=== PATIENT | male | born 1955 ===

== ENCOUNTER 2020-05-24 13:36 | Inpatient (IN) ==
[2020-05-24] MEDS ORDERED: ZALEPLON 5 MG CAPSULE PO PRN (13:42)
[2020-05-24] MEDS ORDERED: POTASSIUM CHLORIDE 20 MEQ TABLET PO PRN (13:42)
[2020-05-24] MEDS ORDERED: LACTULOSE 20 GM/30 ML UDCUP PO PRN (13:42)
[2020-05-24] MEDS ORDERED: ALUMINUM/MAGNES/SIMETH MAX STR 30 ML UDCUP PO PRN (13:42)
[2020-05-24] MEDS ORDERED: diphenhydrAMINE CAP 25 MG CAPSULE PO PRN (13:42)
[2020-05-24] MEDS ORDERED: SIMETHICONE CHEW 125 MG TABLET PO PRN (13:42)
[2020-05-24] MEDS ORDERED: CALCIUM CARBONATE CHEW 500 MG TABLET PO PRN (13:42)
[2020-05-24] MEDS ORDERED: BISACODYL 5 MG TABLET PO PRN (13:42)
[2020-05-24] MEDS ORDERED: ONDANSETRON 4 MG/2 ML VIAL IV PRN (13:42)
[2020-05-24] MEDS ORDERED: guaiFENesin/DM ER 600-30 MG TABLET PO PRN (13:42)
[2020-05-24] MEDS ORDERED: MAGNESIUM SULF RIDER 2 GM in PREMIX 1 EACH IV PRN (13:42)
[2020-05-24] MEDS ORDERED: MORPHINE 4 MG/1 ML VIAL IV PRN (13:42)
[2020-05-24] MEDS ORDERED: MAGNESIUM SULF RIDER 4 GM in PREMIX 1 EACH IV PRN (13:42)
[2020-05-24] MEDS ORDERED: FLUTICASONE 50 MCG NASAL SPRAY 16 GM BOTTLE BOTH NARES PRN (13:47)
[2020-05-24] MEDS ORDERED: GLUCAGON 1 MG VIAL IM PRN (13:49)
[2020-05-24] MEDS ORDERED: DEXTROSE 50% 25 GM/50 ML VIAL IV PRN (13:49)
[2020-05-24] MEDS: INSULIN LISPRO 100 UNIT/ML SUBCUT SCH ×2 (18:15→21:43)
[2020-05-24 18:25] LABS: Basophils % 0.2 % (0.0-0.8); Eosinophils # 0.1 10*3/uL (0.0-0.87); Eosinophils % 1.4 % (0.00-10.9); Hematocrit 35.6 VOL% (42.0-52.0); Hemoglobin 11.5 GM/DL (14.0-18.0); Immature Granulocytes % 0.3 %; Immature Granulocytes Absolute 0.02 #; Lymphocytes # 2.2 10*3/uL (1.4-4.0); Lymphocytes % 34.6 % (21.2-54.2); Mean Corpuscular HGB Conc 32.3 GM/DL (32-36); Mean Corpuscular Volume 95.7 FL (87-102); Mean Platelet Volume 10.4 FL (9.6-12.0); Neutrophils % 54.5 % (38.7-73.9); Platelet Count 205 T/CUMM (130-400); Red Blood Count 3.72 MC/CUMM (3.8-5.5); Red Cell Distribution Width 17.4 % (9.3-17.3); White Blood Count 6.5 T/CUMM (4-12)
[2020-05-24] MEDS: FUROSEMIDE 40 MG/4 ML VIAL IV SCH (18:30)
[2020-05-24 18:53] LABS: Albumin 3.2 G/DL (3.4-5.0); Bilirubin,Total 2.3 MG/DL (0.2-1.0); Calcium 9.2 MG/DL (8.5-10.1); Osmolality,Calculated 289.8 MOS/KG (273-304); Thyroid Stimulating Hormone 1.61 uIU/ml (0.358-3.74); Total Protein 5.9 G/DL (6.4-8.3)
[2020-05-24 20:00] LABS: Band Neutrophils 3 % (0-10); Lymphocytes 26 % (20-55); Nucleated Red Blood Cells 1 (0-5); Segmented Neutrophils 64 % (50-85); Total Cells Counted 100
[2020-05-24 20:01] LABS: Anisocytosis Slight; Ovalocytes Few; Platelet Estimate Adequate; Polychromasia Few
[2020-05-24] MEDS ORDERED: APIXABAN 5 MG TABLET PO SCH (21:00)
[2020-05-24] MEDS ORDERED: LISINOPRIL/HCTZ 20-12.5 MG TABLET PO SCH (21:00)
[2020-05-24 21:23] LABS: Troponin I 0.044 NG/ML (0.00-0.045)
[2020-05-24] MEDS: hydrALAZINE 25 MG TABLET PO SCH (21:42)
[2020-05-24 23:38] LABS: Troponin I 0.045 NG/ML (0.00-0.045)
[2020-05-25 05:55] LABS: Basophils % 0.3 % (0.0-0.8); Eosinophils # 0.1 10*3/uL (0.0-0.87); Eosinophils % 1.9 % (0.00-10.9); Hematocrit 33.5 VOL% (42.0-52.0); Hemoglobin 10.8 GM/DL (14.0-18.0); Immature Granulocytes % 0.3 %; Immature Granulocytes Absolute 0.02 #; Lymphocytes # 2.2 10*3/uL (1.4-4.0); Lymphocytes % 34.5 % (21.2-54.2); Mean Corpuscular HGB Conc 32.2 GM/DL (32-36); Mean Corpuscular Volume 95.7 FL (87-102); Mean Platelet Volume 11.2 FL (9.6-12.0); Monocytes % 10.3 % (1.7-12.7); Neutrophils % 52.7 % (38.7-73.9); Platelet Count 188 T/CUMM (130-400); Red Cell Distribution Width 17.5 % (9.3-17.3); White Blood Count 6.2 T/CUMM (4-12)
[2020-05-25 06:18] LABS: Calcium 8.8 MG/DL (8.5-10.1); Osmolality,Calculated 291.7 MOS/KG (273-304); Risk Ratio 2.64; VLDL CHOLESTEROL 8.8 MG/DL
[2020-05-25 06:28] LABS: Eosinophils 2 % (0-10); Lymphocytes 28 % (20-55); Platelet Estimate Adequate; Segmented Neutrophils 56 % (50-85); Total Cells Counted 100
[2020-05-25 06:29] LABS: Atypical Lymphocytes Few; Burr Cells Slight; Hypochromasia 1+; Ovalocytes Slight
[2020-05-25] MEDS: INSULIN LISPRO 100 UNIT/ML SUBCUT SCH ×4 (08:27→23:05)
[2020-05-25] MEDS: hydrALAZINE 25 MG TABLET PO SCH ×2 (08:56→23:03)
[2020-05-25] MEDS: GLIMEPIRIDE 4 MG TABLET PO SCH (08:56)
[2020-05-25] MEDS: SPIRONOLACTONE 25 MG TABLET PO SCH (08:56)
[2020-05-25] MEDS: ATORVASTATIN 40 MG TABLET PO SCH (08:57)
[2020-05-25] MEDS: APIXABAN 2.5 MG TABLET PO SCH ×2 (08:57→23:03)
[2020-05-25] MEDS: POTASSIUM CHLORIDE 20 MEQ TABLET PO SCH ×2 (08:57→23:02)
[2020-05-25] MEDS: FUROSEMIDE 40 MG/4 ML VIAL IV SCH ×2 (08:57→15:32)
[2020-05-25] MEDS: NEBIVOLOL 10 MG TABLET PO SCH (08:57)
[2020-05-25] MEDS: PANTOPRAZOLE 40 MG TABLET PO SCH (08:57)
[2020-05-25] MEDS: MAGNESIUM OXIDE 400 MG TABLET PO SCH ×2 (08:57→23:03)
[2020-05-25] MEDS: MULTIVITAMIN (CENTRUM) TABLET PO SCH (08:57)
[2020-05-25] MEDS ORDERED: metOLazone 5 MG TABLET PO SCH (09:00)
[2020-05-25] MEDS ORDERED: POTASSIUM CHLORIDE 20 MEQ TABLET PO ONE (11:00)
[2020-05-26 05:42] LABS: Basophils % 0.4 % (0.0-0.8); Eosinophils # 0.2 10*3/uL (0.0-0.87); Eosinophils % 2.2 % (0.00-10.9); Hematocrit 34.5 VOL% (42.0-52.0); Hemoglobin 11.4 GM/DL (14.0-18.0); Immature Granulocytes % 0.3 %; Immature Granulocytes Absolute 0.02 #; Lymphocytes # 2.8 10*3/uL (1.4-4.0); Mean Corpuscular Volume 94.5 FL (87-102); Mean Platelet Volume 10.9 FL (9.6-12.0); Monocytes % 16.7 % (1.7-12.7); Neutrophils % 41.4 % (38.7-73.9); Platelet Count 205 T/CUMM (130-400); Red Blood Count 3.65 MC/CUMM (3.8-5.5); Red Cell Distribution Width 17.2 % (9.3-17.3); White Blood Count 7.3 T/CUMM (4-12)
[2020-05-26 06:03] LABS: Calcium 9.2 MG/DL (8.5-10.1); Osmolality,Calculated 286.1 MOS/KG (273-304)
[2020-05-26 06:22] LABS: Acanthocytes 1+; Anisocytosis 1+; Band Neutrophils 2 % (0-10); Lymphocytes 42 % (20-55); Ovalocytes 1+; Segmented Neutrophils 39 % (50-85); Total Cells Counted 100
[2020-05-26 06:23] LABS: Platelet Estimate Normal
[2020-05-26] MEDS ORDERED: MAGNESIUM SULF RIDER 2 GM in PREMIX 1 EACH IV ONE (08:02)
[2020-05-26] MEDS ORDERED: POTASSIUM CHLORIDE 20 MEQ TABLET PO ONE (08:02)
[2020-05-26] MEDS: INSULIN LISPRO 100 UNIT/ML SUBCUT SCH ×4 (09:08→21:30)
[2020-05-26] MEDS: MAGNESIUM OXIDE 400 MG TABLET PO SCH ×2 (09:09→21:32)
[2020-05-26] MEDS: NEBIVOLOL 10 MG TABLET PO SCH (09:09)
[2020-05-26] MEDS: GLIMEPIRIDE 4 MG TABLET PO SCH (09:10)
[2020-05-26] MEDS: APIXABAN 2.5 MG TABLET PO SCH ×2 (09:10→21:32)
[2020-05-26] MEDS: SPIRONOLACTONE 25 MG TABLET PO SCH (09:10)
[2020-05-26] MEDS: ATORVASTATIN 40 MG TABLET PO SCH (09:10)
[2020-05-26] MEDS: MULTIVITAMIN (CENTRUM) TABLET PO SCH (09:10)
[2020-05-26] MEDS: hydrALAZINE 25 MG TABLET PO SCH ×2 (09:10→21:29)
[2020-05-26] MEDS: POTASSIUM CHLORIDE 20 MEQ TABLET PO SCH ×3 (09:10→21:32)
[2020-05-26] MEDS: FUROSEMIDE 40 MG/4 ML VIAL IV SCH ×2 (09:11→17:11)
[2020-05-26] MEDS: PANTOPRAZOLE 40 MG TABLET PO SCH (09:14)
[2020-05-26] MEDS: ACETAMINOPHEN 325 MG TABLET PO PRN (21:44)
[2020-05-27 05:44] LABS: Basophils % 0.3 % (0.0-0.8); Eosinophils # 0.2 10*3/uL (0.0-0.87); Eosinophils % 1.6 % (0.00-10.9); Hematocrit 34.4 VOL% (42.0-52.0); Hemoglobin 11.4 GM/DL (14.0-18.0); Immature Granulocytes % 0.2 %; Immature Granulocytes Absolute 0.02 #; Lymphocytes # 3.9 10*3/uL (1.4-4.0); Lymphocytes % 40.5 % (21.2-54.2); Mean Corpuscular HGB Conc 33.1 GM/DL (32-36); Mean Platelet Volume 11.4 FL (9.6-12.0); Monocytes % 23.1 % (1.7-12.7); Neutrophils % 34.3 % (38.7-73.9); Platelet Count 220 T/CUMM (130-400); Red Blood Count 3.66 MC/CUMM (3.8-5.5); Red Cell Distribution Width 17.3 % (9.3-17.3); White Blood Count 9.6 T/CUMM (4-12)
[2020-05-27 05:55] LABS: Calcium 9.1 MG/DL (8.5-10.1); Osmolality,Calculated 289.8 MOS/KG (273-304)
[2020-05-27 06:43] LABS: Eosinophils 2 % (0-10); Lymphocytes 40 % (20-55); Segmented Neutrophils 43 % (50-85); Total Cells Counted 100
[2020-05-27 06:44] LABS: Atypical Lymphocytes Few; Burr Cells Slight; Hypochromasia 1+; Ovalocytes Slight; Platelet Estimate Adequate
[2020-05-27] MEDS: POTASSIUM CHLORIDE 20 MEQ TABLET PO SCH ×3 (09:29→20:56)
[2020-05-27] MEDS: MULTIVITAMIN (CENTRUM) TABLET PO SCH (09:30)
[2020-05-27] MEDS: MAGNESIUM OXIDE 400 MG TABLET PO SCH ×2 (09:30→20:56)
[2020-05-27] MEDS: SPIRONOLACTONE 25 MG TABLET PO SCH (09:30)
[2020-05-27] MEDS: ATORVASTATIN 40 MG TABLET PO SCH (09:30)
[2020-05-27] MEDS: APIXABAN 2.5 MG TABLET PO SCH ×2 (09:30→20:56)
[2020-05-27] MEDS: PANTOPRAZOLE 40 MG TABLET PO SCH (09:30)
[2020-05-27] MEDS: FUROSEMIDE 40 MG/4 ML VIAL IV SCH ×2 (09:30→16:12)
[2020-05-27] MEDS: NEBIVOLOL 10 MG TABLET PO SCH (09:31)
[2020-05-27] MEDS: GLIMEPIRIDE 4 MG TABLET PO SCH (09:35)
[2020-05-27] MEDS: INSULIN LISPRO 100 UNIT/ML SUBCUT SCH ×4 (09:35→21:02)
[2020-05-27] MEDS: hydrALAZINE 25 MG TABLET PO SCH ×2 (10:34→21:03)
[2020-05-27] MEDS: DOBUTamine 500 MG/250 ML PREMIX IV SCH (11:29)
[2020-05-27] MEDS: metOLazone 5 MG TABLET PO SCH (15:04)
[2020-05-28] MEDS: DOBUTamine 500 MG/250 ML PREMIX IV SCH ×2 (00:46→15:20)
[2020-05-28 05:29] LABS: Basophils % 0.3 % (0.0-0.8); Eosinophils # 0.1 10*3/uL (0.0-0.87); Eosinophils % 1.1 % (0.00-10.9); Hematocrit 32.8 VOL% (42.0-52.0); Hemoglobin 10.9 GM/DL (14.0-18.0); Immature Granulocytes % 0.2 %; Immature Granulocytes Absolute 0.02 #; Lymphocytes # 3.8 10*3/uL (1.4-4.0); Lymphocytes % 37.4 % (21.2-54.2); Mean Corpuscular HGB Conc 33.2 GM/DL (32-36); Mean Corpuscular Volume 93.4 FL (87-102); Mean Platelet Volume 11.1 FL (9.6-12.0); Monocytes % 30.7 % (1.7-12.7); Neutrophils % 30.3 % (38.7-73.9); Platelet Count 199 T/CUMM (130-400); Red Blood Count 3.51 MC/CUMM (3.8-5.5); Red Cell Distribution Width 17.2 % (9.3-17.3); White Blood Count 10.3 T/CUMM (4-12)
[2020-05-28 05:56] LABS: Calcium 9.1 MG/DL (8.5-10.1); Osmolality,Calculated 289.3 MOS/KG (273-304)
[2020-05-28 05:58] LABS: Calcium 9.3 MG/DL (8.5-10.1); Osmolality,Calculated 285.5 MOS/KG (273-304)
[2020-05-28 06:02] LABS: Anisocytosis 1+; Burr Cells Few; Platelet Estimate Normal; Poikilocytosis Slight
[2020-05-28 06:03] LABS: Macrocytosis 1+
[2020-05-28] MEDS: INSULIN LISPRO 100 UNIT/ML SUBCUT SCH ×4 (08:55→21:18)
[2020-05-28] MEDS: metOLazone 5 MG TABLET PO SCH (08:56)
[2020-05-28] MEDS: MAGNESIUM OXIDE 400 MG TABLET PO SCH ×2 (08:57→21:21)
[2020-05-28] MEDS: APIXABAN 2.5 MG TABLET PO SCH ×2 (08:57→21:20)
[2020-05-28] MEDS: POTASSIUM CHLORIDE 20 MEQ TABLET PO SCH ×3 (08:57→21:20)
[2020-05-28] MEDS: PANTOPRAZOLE 40 MG TABLET PO SCH (08:57)
[2020-05-28] MEDS: FUROSEMIDE 40 MG/4 ML VIAL IV SCH ×2 (08:57→15:21)
[2020-05-28] MEDS: MULTIVITAMIN (CENTRUM) TABLET PO SCH (08:57)
[2020-05-28] MEDS: ATORVASTATIN 40 MG TABLET PO SCH (08:57)
[2020-05-28] MEDS: NEBIVOLOL 10 MG TABLET PO SCH (08:58)
[2020-05-28] MEDS: SPIRONOLACTONE 25 MG TABLET PO SCH (08:58)
[2020-05-28] MEDS: hydrALAZINE 25 MG TABLET PO SCH ×2 (08:58→21:20)
[2020-05-28] MEDS ORDERED: MAGNESIUM SULF RIDER 2 GM in PREMIX 1 EACH IV ONE (12:19)
[2020-05-28] MEDS ORDERED: THEOPHYLLINE ER 300 MG TABLET PO SCH (13:30)
[2020-05-28] MEDS ORDERED: predniSONE 5 MG TABLET PO SCH (13:30)
[2020-05-28] MEDS ORDERED: POTASSIUM CHLORIDE 10 MEQ TABLET PO SCH (13:30)
[2020-05-28] MEDS ORDERED: MAGNESIUM CHLORIDE 64 MG TABLET PO SCH (14:00)
[2020-05-28] MEDS ORDERED: WARFARIN 3 MG TABLET PO SCH (18:00)
[2020-05-28] MEDS: ASCORBIC ACID 500 MG TABLET PO SCH (21:20)
[2020-05-29 05:21] LABS: Basophils % 0.3 % (0.0-0.8); Eosinophils # 0.1 10*3/uL (0.0-0.87); Hematocrit 33.3 VOL% (42.0-52.0); Hemoglobin 11.1 GM/DL (14.0-18.0); Immature Granulocytes % 0.2 %; Immature Granulocytes Absolute 0.02 #; Lymphocytes # 4.1 10*3/uL (1.4-4.0); Lymphocytes % 34.4 % (21.2-54.2); Mean Corpuscular HGB Conc 33.3 GM/DL (32-36); Mean Corpuscular Volume 91.5 FL (87-102); Mean Platelet Volume 11.2 FL (9.6-12.0); Monocytes % 38.2 % (1.7-12.7); Neutrophils % 25.9 % (38.7-73.9); Platelet Count 200 T/CUMM (130-400); Red Blood Count 3.64 MC/CUMM (3.8-5.5); Red Cell Distribution Width 16.8 % (9.3-17.3)
[2020-05-29] MEDS: ACETAMINOPHEN 325 MG TABLET PO PRN ×2 (05:23→22:05)
[2020-05-29] MEDS: DOBUTamine 500 MG/250 ML PREMIX IV SCH ×2 (05:25→22:52)
[2020-05-29 05:50] LABS: Atypical Lymphocytes Few; Eosinophils 1 % (0-10); Hypochromasia 1+; Lymphocytes 50 % (20-55); Ovalocytes Slight; Platelet Estimate Adequate; Segmented Neutrophils 39 % (50-85); Smudge Cells Moderate; Total Cells Counted 100
[2020-05-29 06:01] LABS: Calcium 9.7 MG/DL (8.5-10.1); Osmolality,Calculated 281.8 MOS/KG (273-304)
[2020-05-29] MEDS: FUROSEMIDE 40 MG/4 ML VIAL IV SCH ×2 (08:54→16:01)
[2020-05-29] MEDS: SPIRONOLACTONE 25 MG TABLET PO SCH (09:02)
[2020-05-29] MEDS: NEBIVOLOL 10 MG TABLET PO SCH (09:03)
[2020-05-29] MEDS: hydrALAZINE 25 MG TABLET PO SCH ×2 (09:03→22:52)
[2020-05-29] MEDS: ISOSORBIDE MONONITRATE 30 MG TABLET PO SCH (09:03)
[2020-05-29] MEDS: metOLazone 5 MG TABLET PO SCH (09:05)
[2020-05-29] MEDS: INSULIN LISPRO 100 UNIT/ML SUBCUT SCH ×4 (09:05→22:53)
[2020-05-29] MEDS: MULTIVITAMIN (CENTRUM) TABLET PO SCH (09:06)
[2020-05-29] MEDS: PANTOPRAZOLE 40 MG TABLET PO SCH (09:06)
[2020-05-29] MEDS: MAGNESIUM OXIDE 400 MG TABLET PO SCH ×2 (09:06→22:52)
[2020-05-29] MEDS: ASCORBIC ACID 500 MG TABLET PO SCH ×2 (09:06→22:52)
[2020-05-29] MEDS: APIXABAN 2.5 MG TABLET PO SCH ×2 (09:06→22:53)
[2020-05-29] MEDS: ATORVASTATIN 40 MG TABLET PO SCH (09:06)
[2020-05-29] MEDS: POTASSIUM CHLORIDE 20 MEQ TABLET PO SCH ×3 (09:06→22:53)
[2020-05-29] MEDS ORDERED: WARFARIN 3 MG TABLET PO SCH (18:00)
[2020-05-30 05:46] LABS: Basophils % 0.3 % (0.0-0.8); Eosinophils # 0.2 10*3/uL (0.0-0.87); Eosinophils % 1.3 % (0.00-10.9); Hematocrit 33.8 VOL% (42.0-52.0); Hemoglobin 11.3 GM/DL (14.0-18.0); Immature Granulocytes % 0.2 %; Immature Granulocytes Absolute 0.02 #; Lymphocytes # 4.4 10*3/uL (1.4-4.0); Lymphocytes % 36.5 % (21.2-54.2); Mean Corpuscular HGB Conc 33.4 GM/DL (32-36); Mean Corpuscular Volume 92.6 FL (87-102); Mean Platelet Volume 11.2 FL (9.6-12.0); Monocytes % 36.5 % (1.7-12.7); Neutrophils % 25.2 % (38.7-73.9); Platelet Count 206 T/CUMM (130-400); Red Blood Count 3.65 MC/CUMM (3.8-5.5); Red Cell Distribution Width 16.7 % (9.3-17.3)
[2020-05-30 06:00] LABS: Calcium 9.4 MG/DL (8.5-10.1); Osmolality,Calculated 285.7 MOS/KG (273-304)
[2020-05-30 06:12] LABS: Eosinophils 2 % (0-10); Lymphocytes 43 % (20-55); Platelet Estimate Normal; Segmented Neutrophils 43 % (50-85); Total Cells Counted 100
[2020-05-30 06:13] LABS: Atypical Lymphocytes Few; Smudge Cells Few
[2020-05-30] MEDS: INSULIN LISPRO 100 UNIT/ML SUBCUT SCH ×4 (07:39→21:25)
[2020-05-30] MEDS: FUROSEMIDE 40 MG/4 ML VIAL IV SCH ×2 (09:57→16:56)
[2020-05-30] MEDS: POTASSIUM CHLORIDE 20 MEQ TABLET PO SCH ×3 (09:58→20:29)
[2020-05-30] MEDS: ISOSORBIDE MONONITRATE 30 MG TABLET PO SCH (09:58)
[2020-05-30] MEDS: MAGNESIUM OXIDE 400 MG TABLET PO SCH ×2 (09:58→20:29)
[2020-05-30] MEDS: MULTIVITAMIN (CENTRUM) TABLET PO SCH (09:58)
[2020-05-30] MEDS: ATORVASTATIN 40 MG TABLET PO SCH (09:58)
[2020-05-30] MEDS: hydrALAZINE 25 MG TABLET PO SCH ×2 (09:59→20:29)
[2020-05-30] MEDS: ASCORBIC ACID 500 MG TABLET PO SCH ×2 (09:59→20:29)
[2020-05-30] MEDS: metOLazone 5 MG TABLET PO SCH (09:59)
[2020-05-30] MEDS: NEBIVOLOL 10 MG TABLET PO SCH (09:59)
[2020-05-30] MEDS: SPIRONOLACTONE 25 MG TABLET PO SCH (09:59)
[2020-05-30] MEDS: PANTOPRAZOLE 40 MG TABLET PO SCH (09:59)
[2020-05-30] MEDS: APIXABAN 2.5 MG TABLET PO SCH ×2 (09:59→20:29)
[2020-05-30] MEDS: DOBUTamine 500 MG/250 ML PREMIX IV SCH (20:28)
[2020-05-31] MEDS: DOBUTamine 500 MG/250 ML PREMIX IV SCH (02:11)
[2020-05-31 05:49] LABS: Basophils % 0.3 % (0.0-0.8); Eosinophils # 0.1 10*3/uL (0.0-0.87); Eosinophils % 0.7 % (0.00-10.9); Hematocrit 33.9 VOL% (42.0-52.0); Hemoglobin 11.4 GM/DL (14.0-18.0); Immature Granulocytes % 0.1 %; Immature Granulocytes Absolute 0.02 #; Lymphocytes # 5.5 10*3/uL (1.4-4.0); Lymphocytes % 36.3 % (21.2-54.2); Mean Corpuscular HGB Conc 33.6 GM/DL (32-36); Mean Corpuscular Volume 89.9 FL (87-102); Mean Platelet Volume 11.4 FL (9.6-12.0); Monocytes % 38.3 % (1.7-12.7); Neutrophils % 24.3 % (38.7-73.9); Platelet Count 201 T/CUMM (130-400); Red Blood Count 3.77 MC/CUMM (3.8-5.5); Red Cell Distribution Width 16.5 % (9.3-17.3); White Blood Count 15.1 T/CUMM (4-12)
[2020-05-31 06:12] LABS: Calcium 9.5 MG/DL (8.5-10.1); Osmolality,Calculated 280.2 MOS/KG (273-304)
[2020-05-31 06:18] LABS: Atypical Lymphocytes Few; Burr Cells Slight; Eosinophils 2 % (0-10); Hypochromasia 1+; Lymphocytes 36 % (20-55); Ovalocytes Slight; Platelet Estimate Adequate; Segmented Neutrophils 45 % (50-85); Smudge Cells Few; Total Cells Counted 100
[2020-05-31] MEDS: ACETAMINOPHEN 325 MG TABLET PO PRN (08:42)
[2020-05-31] MEDS: INSULIN LISPRO 100 UNIT/ML SUBCUT SCH ×4 (08:55→20:39)
[2020-05-31] MEDS: FUROSEMIDE 40 MG/4 ML VIAL IV SCH ×3 (08:56→15:33)
[2020-05-31] MEDS: NEBIVOLOL 10 MG TABLET PO SCH (08:56)
[2020-05-31] MEDS: metOLazone 5 MG TABLET PO SCH (08:56)
[2020-05-31] MEDS: SPIRONOLACTONE 25 MG TABLET PO SCH (08:57)
[2020-05-31] MEDS: MULTIVITAMIN (CENTRUM) TABLET PO SCH (08:58)
[2020-05-31] MEDS: APIXABAN 2.5 MG TABLET PO SCH ×2 (08:58→20:42)
[2020-05-31] MEDS: ISOSORBIDE MONONITRATE 30 MG TABLET PO SCH (08:58)
[2020-05-31] MEDS: hydrALAZINE 25 MG TABLET PO SCH ×2 (08:58→20:42)
[2020-05-31] MEDS: MAGNESIUM OXIDE 400 MG TABLET PO SCH ×2 (08:59→20:39)
[2020-05-31] MEDS: ASCORBIC ACID 500 MG TABLET PO SCH ×2 (08:59→20:40)
[2020-05-31] MEDS: ATORVASTATIN 40 MG TABLET PO SCH (08:59)
[2020-05-31] MEDS: POTASSIUM CHLORIDE 20 MEQ TABLET PO SCH ×3 (08:59→20:40)
[2020-05-31] MEDS: PANTOPRAZOLE 40 MG TABLET PO SCH (08:59)
[2020-06-01 05:15] LABS: Basophils % 0.3 % (0.0-0.8); Eosinophils # 0.1 10*3/uL (0.0-0.87); Eosinophils % 1.2 % (0.00-10.9); Hematocrit 32.7 VOL% (42.0-52.0); Hemoglobin 11.1 GM/DL (14.0-18.0); Immature Granulocytes % 0.2 %; Immature Granulocytes Absolute 0.02 #; Lymphocytes # 4.7 10*3/uL (1.4-4.0); Lymphocytes % 43.6 % (21.2-54.2); Mean Corpuscular HGB Conc 33.9 GM/DL (32-36); Mean Corpuscular Volume 90.8 FL (87-102); Mean Platelet Volume 11.3 FL (9.6-12.0); Monocytes % 30.2 % (1.7-12.7); Neutrophils % 24.5 % (38.7-73.9); Platelet Count 198 T/CUMM (130-400); Red Cell Distribution Width 16.1 % (9.3-17.3); White Blood Count 10.7 T/CUMM (4-12)
[2020-06-01 05:36] LABS: Albumin 2.9 G/DL (3.4-5.0); Bilirubin,Direct 0.96 MG/DL (0.0-0.20); Bilirubin,Indirect 0.9 MG/DL (0.0-1.0); Bilirubin,Total 1.9 MG/DL (0.2-1.0); Calcium 8.7 MG/DL (8.5-10.1); Osmolality,Calculated 285.1 MOS/KG (273-304); Total Protein 5.7 G/DL (6.4-8.3)
[2020-06-01 06:07] LABS: Eosinophils 1 % (0-10); Total Cells Counted 100
[2020-06-01 06:30] LABS: Lymphocytes 43 % (20-55); Segmented Neutrophils 28 % (50-85)
[2020-06-01 06:34] LABS: Hypochromasia Slight; Platelet Estimate Normal
[2020-06-01 07:04] LABS: Atypical Lymphocytes Few
[2020-06-01] MEDS: INSULIN LISPRO 100 UNIT/ML SUBCUT SCH ×4 (08:59→21:07)
[2020-06-01] MEDS: metOLazone 5 MG TABLET PO SCH (09:01)
[2020-06-01] MEDS: POTASSIUM CHLORIDE 20 MEQ TABLET PO SCH ×3 (09:01→21:07)
[2020-06-01] MEDS: NEBIVOLOL 10 MG TABLET PO SCH (09:02)
[2020-06-01] MEDS: ISOSORBIDE MONONITRATE 30 MG TABLET PO SCH (09:03)
[2020-06-01] MEDS: PANTOPRAZOLE 40 MG TABLET PO SCH (09:05)
[2020-06-01] MEDS: ATORVASTATIN 40 MG TABLET PO SCH (09:11)
[2020-06-01] MEDS: MULTIVITAMIN (CENTRUM) TABLET PO SCH (09:11)
[2020-06-01] MEDS: MAGNESIUM OXIDE 400 MG TABLET PO SCH ×2 (09:11→21:06)
[2020-06-01] MEDS: SPIRONOLACTONE 25 MG TABLET PO SCH (09:11)
[2020-06-01] MEDS: ASCORBIC ACID 500 MG TABLET PO SCH ×2 (09:11→21:07)
[2020-06-01] MEDS: hydrALAZINE 25 MG TABLET PO SCH ×2 (09:11→21:07)
[2020-06-01] MEDS: APIXABAN 2.5 MG TABLET PO SCH ×2 (09:11→21:07)
[2020-06-01] MEDS: FUROSEMIDE 40 MG/4 ML VIAL IV SCH ×2 (10:03→16:04)
[2020-06-02 08:01] VITALS: BP 92/67
[2020-06-02 08:16] LABS: Basophils % 0.2 % (0.0-0.8); Eosinophils # 0.1 10*3/uL (0.0-0.87); Eosinophils % 0.7 % (0.00-10.9); Hematocrit 35.4 VOL% (42.0-52.0); Hemoglobin 12.1 GM/DL (14.0-18.0); Immature Granulocytes % 0.2 %; Immature Granulocytes Absolute 0.02 #; Lymphocytes # 7.1 10*3/uL (1.4-4.0); Lymphocytes % 55.1 % (21.2-54.2); Mean Corpuscular HGB Conc 34.2 GM/DL (32-36); Mean Corpuscular Volume 91.2 FL (87-102); Mean Platelet Volume 11.3 FL (9.6-12.0); Monocytes % 23.4 % (1.7-12.7); Neutrophils % 20.4 % (38.7-73.9); Platelet Count 215 T/CUMM (130-400); Red Blood Count 3.88 MC/CUMM (3.8-5.5); Red Cell Distribution Width 16.3 % (9.3-17.3); White Blood Count 12.8 T/CUMM (4-12)
[2020-06-02 08:31] LABS: Osmolality,Calculated 287.1 MOS/KG (273-304)
[2020-06-02 08:39] LABS: Anisocytosis 1+; Atypical Lymphocytes Few; Eosinophils 3 % (0-10); Lymphocytes 54 % (20-55); Platelet Estimate Normal; Segmented Neutrophils 26 % (50-85); Smudge Cells 1+; Total Cells Counted 100
[2020-06-02 08:40] LABS: Poikilocytosis Slight
[2020-06-02] MEDS: hydrALAZINE 25 MG TABLET PO SCH (08:48)
[2020-06-02] MEDS: PANTOPRAZOLE 40 MG TABLET PO SCH (08:48)
[2020-06-02] MEDS: POTASSIUM CHLORIDE 20 MEQ TABLET PO SCH (08:48)
[2020-06-02] MEDS: MULTIVITAMIN (CENTRUM) TABLET PO SCH (08:48)
[2020-06-02] MEDS: ASCORBIC ACID 500 MG TABLET PO SCH (08:49)
[2020-06-02] MEDS: metOLazone 5 MG TABLET PO SCH (08:49)
[2020-06-02] MEDS: MAGNESIUM OXIDE 400 MG TABLET PO SCH (08:49)
[2020-06-02] MEDS: ATORVASTATIN 40 MG TABLET PO SCH (08:50)
[2020-06-02] MEDS: APIXABAN 2.5 MG TABLET PO SCH (08:50)
[2020-06-02] MEDS: ISOSORBIDE MONONITRATE 30 MG TABLET PO SCH (08:50)
[2020-06-02] MEDS: NEBIVOLOL 10 MG TABLET PO SCH (08:50)
[2020-06-02] MEDS: INSULIN LISPRO 100 UNIT/ML SUBCUT SCH (08:51)
[2020-06-02] MEDS: SPIRONOLACTONE 25 MG TABLET PO SCH (08:52)
[2020-06-02] MEDS ORDERED: TORSEMIDE 20 MG TABLET PO SCH (09:00)
== END 2020-06-02 12:10 | disposition home or self-care (01) | DRG 194 ==
LOC: N.TELES → PREINTOOBSV 14:04
PROVIDERS: ADMIT Internal Medicine Cardiovascular Disease; ATTEND Internal Medicine Cardiovascular Disease

== ENCOUNTER 2020-07-11 12:10 | Inpatient (IN) ==
[2020-07-11] MEDS ORDERED: FUROSEMIDE 100 MG/10 ML VIAL IV STA (12:40)
[2020-07-11] MEDS ORDERED: AMMONIA INHALANT 1 EACH AMP INH ONE (12:58)
[2020-07-11 13:08] LABS: Basophils % 0.1 % (0.0-0.8); Eosinophils # 0.1 10*3/uL (0.0-0.87); Eosinophils % 0.7 % (0.00-10.9); Hematocrit 35.2 VOL% (42.0-52.0); Hemoglobin 11.7 GM/DL (14.0-18.0); Immature Granulocytes % 0.2 %; Immature Granulocytes Absolute 0.02 #; Lymphocytes # 4.6 10*3/uL (1.4-4.0); Lymphocytes % 52.9 % (21.2-54.2); Mean Corpuscular HGB Conc 33.2 GM/DL (32-36); Mean Corpuscular Volume 92.6 FL (87-102); Mean Platelet Volume 9.9 FL (9.6-12.0); Monocytes % 13.3 % (1.7-12.7); Neutrophils % 32.8 % (38.7-73.9); Platelet Count 267 T/CUMM (130-400); Red Cell Distribution Width 17.9 % (9.3-17.3); White Blood Count 8.7 T/CUMM (4-12)
[2020-07-11 13:37] LABS: Eosinophils 1 % (0-10); Lymphocytes 47 % (20-55); Segmented Neutrophils 41 % (50-85); Total Cells Counted 100
[2020-07-11 13:38] LABS: Albumin 3.6 G/DL (3.4-5.0); Anisocytosis 1+; Bilirubin,Total 2.7 MG/DL (0.2-1.0); Burr Cells Few; Calcium 9.5 MG/DL (8.5-10.1); Elliptocytes Few; Osmolality,Calculated 291.4 MOS/KG (273-304); Poikilocytosis 1+; Reactive Lymphocytes Few; Schistocytes 1+; Total Protein 6.3 G/DL (6.4-8.3)
[2020-07-11 13:39] LABS: Hypochromasia Slight; Platelet Estimate Adequate; Polychromasia Slight
[2020-07-11 14:46] LABS: Bilirubin,Urine Negative (Negative); Blood, Urine Negative (Negative); Glucose,Urine (UA) Negative (Negative); Ketones,Urine Negative (Negative); Mucus,Urine Occasional /LPF (Occasional); Nitrite,Urine Negative (Negative); Protein,Urine Negative; RBC,Urine 1 /HPF (0-4); Urine Appearance CLEAR (Clear); Urine Color Yellow (Yellow); Urine Specific Gravity 1.006 (1.001-1.035); WBC,Urine <1 /HPF (0-6)
[2020-07-11] MEDS ORDERED: ACETAMINOPHEN 325 MG TABLET PO PRN (15:29)
[2020-07-11] MEDS ORDERED: GLUCAGON 1 MG VIAL IM PRN (15:29)
[2020-07-11] MEDS ORDERED: DEXTROSE 50% 25 GM/50 ML VIAL IV PRN (15:29)
[2020-07-11] MEDS ORDERED: hydrALAZINE 20 MG/1 ML VIAL IV PRN (15:29)
[2020-07-11] MEDS ORDERED: ONDANSETRON 4 MG/2 ML VIAL IV PRN (15:29)
[2020-07-11 16:12] LABS: Risk Ratio 4.13; Thyroid Stimulating Hormone 2.49 uIU/ml (0.358-3.74); VLDL CHOLESTEROL 15.4 MG/DL
[2020-07-11] MEDS: INSULIN LISPRO 100 UNIT/ML SUBCUT SCH ×2 (17:17→22:23)
[2020-07-11] MEDS: hydrALAZINE 25 MG TABLET PO SCH (22:19)
[2020-07-11] MEDS: MAGNESIUM OXIDE 400 MG TABLET PO SCH ×2 (22:19→22:22)
[2020-07-11] MEDS: FUROSEMIDE 40 MG/4 ML VIAL IV SCH (22:19)
[2020-07-11] MEDS: POTASSIUM CHLORIDE 20 MEQ TABLET PO SCH (22:19)
[2020-07-11] MEDS: APIXABAN 5 MG TABLET PO SCH (22:19)
[2020-07-11] MEDS: INSULIN GLARGINE 100 UNIT/ML SUBCUT SCH (22:24)
[2020-07-12 06:05] LABS: Basophils % 0.2 % (0.0-0.8); Eosinophils # 0.1 10*3/uL (0.0-0.87); Eosinophils % 0.5 % (0.00-10.9); Hematocrit 33.5 VOL% (42.0-52.0); Hemoglobin 10.9 GM/DL (14.0-18.0); Immature Granulocytes % 0.3 %; Immature Granulocytes Absolute 0.03 #; Lymphocytes # 7.1 10*3/uL (1.4-4.0); Lymphocytes % 63.2 % (21.2-54.2); Mean Corpuscular HGB Conc 32.5 GM/DL (32-36); Mean Corpuscular Volume 93.3 FL (87-102); Mean Platelet Volume 9.7 FL (9.6-12.0); Monocytes % 14.9 % (1.7-12.7); Neutrophils % 20.9 % (38.7-73.9); Platelet Count 245 T/CUMM (130-400); Red Blood Count 3.59 MC/CUMM (3.8-5.5); Red Cell Distribution Width 17.8 % (9.3-17.3); White Blood Count 11.2 T/CUMM (4-12)
[2020-07-12 06:23] LABS: Calcium 9.3 MG/DL (8.5-10.1)
[2020-07-12 06:36] LABS: Lymphocytes 65 % (20-55); Reactive Lymphocytes Few; Segmented Neutrophils 25 % (50-85); Total Cells Counted 100
[2020-07-12 06:37] LABS: Hypochromasia 2+; Ovalocytes 2+
[2020-07-12 06:38] LABS: Platelet Estimate Normal; Polychromasia Few
[2020-07-12] MEDS ORDERED: LORazepam 2 MG/1 ML VIAL IV PRN (07:14)
[2020-07-12] MEDS: INSULIN LISPRO 100 UNIT/ML SUBCUT SCH ×4 (08:40→21:48)
[2020-07-12] MEDS: metOLazone 5 MG TABLET PO SCH (08:45)
[2020-07-12] MEDS: POTASSIUM CHLORIDE 20 MEQ TABLET PO SCH ×2 (08:46→21:47)
[2020-07-12] MEDS: PANTOPRAZOLE 40 MG TABLET PO SCH (08:46)
[2020-07-12] MEDS: TAMSULOSIN 0.4 MG CAPSULE PO SCH (08:46)
[2020-07-12] MEDS: NEBIVOLOL 10 MG TABLET PO SCH (08:46)
[2020-07-12] MEDS: FOLIC ACID 1 MG TABLET PO SCH (08:47)
[2020-07-12] MEDS: THIAMINE 100 MG TABLET PO SCH (08:47)
[2020-07-12] MEDS: ISOSORBIDE MONONITRATE 30 MG TABLET PO SCH (08:48)
[2020-07-12] MEDS: SPIRONOLACTONE 25 MG TABLET PO SCH (08:48)
[2020-07-12] MEDS: ATORVASTATIN 40 MG TABLET PO SCH (08:48)
[2020-07-12] MEDS: APIXABAN 5 MG TABLET PO SCH ×2 (08:50→21:47)
[2020-07-12] MEDS: MAGNESIUM OXIDE 400 MG TABLET PO SCH ×2 (08:50→21:47)
[2020-07-12] MEDS: FUROSEMIDE 40 MG/4 ML VIAL IV SCH ×2 (08:54→16:43)
[2020-07-12] MEDS: hydrALAZINE 25 MG TABLET PO SCH ×2 (10:25→21:47)
[2020-07-12] MEDS: INSULIN GLARGINE 100 UNIT/ML SUBCUT SCH (21:47)
[2020-07-13 06:36] LABS: Basophils % 0.2 % (0.0-0.8); Eosinophils # 0.1 10*3/uL (0.0-0.87); Eosinophils % 0.7 % (0.00-10.9); Hematocrit 31.5 VOL% (42.0-52.0); Hemoglobin 10.3 GM/DL (14.0-18.0); Immature Granulocytes % 0.2 %; Immature Granulocytes Absolute 0.02 #; Lymphocytes % 59.6 % (21.2-54.2); Mean Corpuscular HGB Conc 32.7 GM/DL (32-36); Mean Corpuscular Volume 92.1 FL (87-102); Mean Platelet Volume 9.7 FL (9.6-12.0); Monocytes % 15.9 % (1.7-12.7); Neutrophils % 23.4 % (38.7-73.9); Platelet Count 218 T/CUMM (130-400); Red Blood Count 3.42 MC/CUMM (3.8-5.5); Red Cell Distribution Width 17.8 % (9.3-17.3); White Blood Count 10.1 T/CUMM (4-12)
[2020-07-13 06:48] LABS: Calcium 9.2 MG/DL (8.5-10.1); Osmolality,Calculated 290.3 MOS/KG (273-304)
[2020-07-13 07:13] LABS: Eosinophils 1 % (0-10); Lymphocytes 55 % (20-55); Platelet Estimate Adequate; Segmented Neutrophils 41 % (50-85); Total Cells Counted 100
[2020-07-13 07:14] LABS: Atypical Lymphocytes Few; Hypochromasia 1+; Microcytosis 1+; Ovalocytes Slight
[2020-07-13] MEDS: INSULIN LISPRO 100 UNIT/ML SUBCUT SCH ×4 (08:20→21:53)
[2020-07-13] MEDS: NEBIVOLOL 10 MG TABLET PO SCH (08:24)
[2020-07-13] MEDS: ATORVASTATIN 40 MG TABLET PO SCH (08:24)
[2020-07-13] MEDS: APIXABAN 5 MG TABLET PO SCH ×2 (08:24→21:52)
[2020-07-13] MEDS: hydrALAZINE 25 MG TABLET PO SCH ×2 (08:24→21:52)
[2020-07-13] MEDS: ISOSORBIDE MONONITRATE 30 MG TABLET PO SCH (08:24)
[2020-07-13] MEDS: FOLIC ACID 1 MG TABLET PO SCH (08:24)
[2020-07-13] MEDS: metOLazone 5 MG TABLET PO SCH (08:24)
[2020-07-13] MEDS: THIAMINE 100 MG TABLET PO SCH (08:25)
[2020-07-13] MEDS: PANTOPRAZOLE 40 MG TABLET PO SCH (08:25)
[2020-07-13] MEDS: TAMSULOSIN 0.4 MG CAPSULE PO SCH (08:25)
[2020-07-13] MEDS: POTASSIUM CHLORIDE 20 MEQ TABLET PO SCH ×2 (08:25→21:52)
[2020-07-13] MEDS: SPIRONOLACTONE 25 MG TABLET PO SCH (08:25)
[2020-07-13] MEDS: FUROSEMIDE 40 MG/4 ML VIAL IV SCH (08:29)
[2020-07-13] MEDS: MAGNESIUM OXIDE 400 MG TABLET PO SCH ×2 (08:33→21:53)
[2020-07-13] MEDS: FUROSEMIDE 80 MG TABLET PO SCH (16:19)
[2020-07-13] MEDS: INSULIN GLARGINE 100 UNIT/ML SUBCUT SCH (21:51)
[2020-07-14 05:17] LABS: Basophils % 0.1 % (0.0-0.8); Eosinophils # 0.1 10*3/uL (0.0-0.87); Eosinophils % 0.6 % (0.00-10.9); Hematocrit 31.4 VOL% (42.0-52.0); Hemoglobin 10.4 GM/DL (14.0-18.0); Immature Granulocytes % 0.1 %; Immature Granulocytes Absolute 0.01 #; Lymphocytes # 5.4 10*3/uL (1.4-4.0); Lymphocytes % 58.5 % (21.2-54.2); Mean Corpuscular HGB Conc 33.1 GM/DL (32-36); Mean Corpuscular Volume 92.4 FL (87-102); Mean Platelet Volume 9.6 FL (9.6-12.0); Monocytes % 16.1 % (1.7-12.7); Neutrophils % 24.6 % (38.7-73.9); Platelet Count 207 T/CUMM (130-400); Red Cell Distribution Width 17.8 % (9.3-17.3); White Blood Count 9.3 T/CUMM (4-12)
[2020-07-14 05:41] LABS: Calcium 9.3 MG/DL (8.5-10.1); Osmolality,Calculated 288.5 MOS/KG (273-304)
[2020-07-14 05:44] LABS: Atypical Lymphocytes Few; Lymphocytes 55 % (20-55); Microcytosis Slight; Platelet Estimate Adequate; Segmented Neutrophils 41 % (50-85); Total Cells Counted 100
[2020-07-14 05:45] LABS: Hypochromasia 1+; Ovalocytes Slight
[2020-07-14] MEDS: INSULIN LISPRO 100 UNIT/ML SUBCUT SCH ×4 (07:58→22:11)
[2020-07-14] MEDS: NEBIVOLOL 10 MG TABLET PO SCH (08:45)
[2020-07-14] MEDS: SPIRONOLACTONE 25 MG TABLET PO SCH (08:45)
[2020-07-14] MEDS: FUROSEMIDE 80 MG TABLET PO SCH ×2 (08:45→16:59)
[2020-07-14] MEDS: APIXABAN 5 MG TABLET PO SCH ×2 (08:45→20:55)
[2020-07-14] MEDS: MAGNESIUM OXIDE 400 MG TABLET PO SCH ×2 (08:45→20:54)
[2020-07-14] MEDS: metOLazone 5 MG TABLET PO SCH (08:45)
[2020-07-14] MEDS: ISOSORBIDE MONONITRATE 30 MG TABLET PO SCH (08:45)
[2020-07-14] MEDS: hydrALAZINE 25 MG TABLET PO SCH ×2 (08:45→20:55)
[2020-07-14] MEDS: FOLIC ACID 1 MG TABLET PO SCH (08:46)
[2020-07-14] MEDS: POTASSIUM CHLORIDE 20 MEQ TABLET PO SCH ×2 (08:46→20:55)
[2020-07-14] MEDS: TAMSULOSIN 0.4 MG CAPSULE PO SCH (08:46)
[2020-07-14] MEDS: ATORVASTATIN 40 MG TABLET PO SCH (08:46)
[2020-07-14] MEDS: THIAMINE 100 MG TABLET PO SCH (08:46)
[2020-07-14] MEDS: PANTOPRAZOLE 40 MG TABLET PO SCH (08:46)
[2020-07-14] MEDS: INSULIN GLARGINE 100 UNIT/ML SUBCUT SCH (20:54)
[2020-07-15 06:17] LABS: Basophils % 0.4 % (0.0-0.8); Eosinophils # 0.1 10*3/uL (0.0-0.87); Eosinophils % 1.1 % (0.00-10.9); Hematocrit 31.1 VOL% (42.0-52.0); Hemoglobin 10.2 GM/DL (14.0-18.0); Immature Granulocytes % 0.1 %; Immature Granulocytes Absolute 0.01 #; Lymphocytes # 4.4 10*3/uL (1.4-4.0); Lymphocytes % 54.3 % (21.2-54.2); Mean Corpuscular HGB Conc 32.8 GM/DL (32-36); Mean Platelet Volume 9.8 FL (9.6-12.0); Monocytes % 19.3 % (1.7-12.7); Neutrophils % 24.8 % (38.7-73.9); Platelet Count 186 T/CUMM (130-400); Red Blood Count 3.38 MC/CUMM (3.8-5.5); Red Cell Distribution Width 17.6 % (9.3-17.3); White Blood Count 8.1 T/CUMM (4-12)
[2020-07-15 06:28] LABS: Calcium 8.9 MG/DL (8.5-10.1); Osmolality,Calculated 286.7 MOS/KG (273-304)
[2020-07-15 06:51] LABS: Eosinophils 1 % (0-10); Lymphocytes 39 % (20-55); Platelet Estimate Normal; Segmented Neutrophils 50 % (50-85); Total Cells Counted 100
[2020-07-15 06:52] LABS: Hypochromasia Slight
[2020-07-15] MEDS: INSULIN LISPRO 100 UNIT/ML SUBCUT SCH ×2 (08:32→12:25)
[2020-07-15] MEDS: NEBIVOLOL 10 MG TABLET PO SCH ×2 (08:39→08:48)
[2020-07-15] MEDS: ATORVASTATIN 40 MG TABLET PO SCH (08:40)
[2020-07-15] MEDS: FOLIC ACID 1 MG TABLET PO SCH (08:41)
[2020-07-15] MEDS: APIXABAN 5 MG TABLET PO SCH (08:41)
[2020-07-15] MEDS: TAMSULOSIN 0.4 MG CAPSULE PO SCH (08:41)
[2020-07-15] MEDS: PANTOPRAZOLE 40 MG TABLET PO SCH (08:41)
[2020-07-15] MEDS: THIAMINE 100 MG TABLET PO SCH (08:42)
[2020-07-15] MEDS: SPIRONOLACTONE 25 MG TABLET PO SCH (08:42)
[2020-07-15] MEDS: POTASSIUM CHLORIDE 20 MEQ TABLET PO SCH (08:44)
[2020-07-15] MEDS: ISOSORBIDE MONONITRATE 30 MG TABLET PO SCH (08:44)
[2020-07-15] MEDS: hydrALAZINE 25 MG TABLET PO SCH (08:48)
[2020-07-15] MEDS ORDERED: TORSEMIDE 20 MG TABLET PO SCH (09:00)
[2020-07-15 12:12] VITALS: BP 96/70
== END 2020-07-15 13:47 | disposition home health service (06) | DRG 291 ==
LOC: N.ED 12:10 → SUATTDRO 15:28 → N.EDINP 15:28 → N.TELEN 16:45
PROVIDERS: ADMIT Emergency Medicine; ATTEND Internal Medicine